=== PATIENT | female | born 1985 | race Two or more races ===

== ENCOUNTER 2020-08-06 22:57 | Emergency (ER) | payer MEDICAID ==
[~2020-08-06] VITALS: Ht 144.8 cm; Wt 57.7 kg
[2020-08-06] MEDS ORDERED: LORazepam 2 MG/ML, 1ML ONE (23:11)
[2020-08-06 23:25] LABS: BASOPHILS % (AUTO) 1 % (0-1); EOSINOPHILS % (AUTO) 4 % (1-7); LYMPHOCYTES % (AUTO) 47 % (22-44); MD NO; MEAN CORPUSCULAR HEMOGLOBIN 29.5 pg (27.0-34.8); MEAN CORPUSCULAR HGB CONC 34.7 g/dL (32.4-35.8); MEAN PLATELET VOLUME 7.4 fL (7.4-10.4); MONOCYTES % (AUTO) 6 % (2-9); NEUTROPHILS % (AUTO) 42 % (42-75); PLATELET COUNT 466 x10^3/uL (130-400); RED BLOOD COUNT 4.85 x10^6/uL (3.82-5.3)
[2020-08-06] MEDS ORDERED: SODIUM CHLORIDE FLUSH 10ML SYR IVF ONE (23:30)
[2020-08-06] MEDS ORDERED: LORazepam 2 MG/ML, 1ML IVPush ONE (23:30)
[2020-08-06 23:35] LABS: ALBUMIN 3.7 g/dL (3.4-5.0); ANION GAP 7 mmol/L (5-15); CALCIUM 8.3 mg/dL (8.5-10.1); CHLORIDE 107 mmol/L (98-107); CREATININE 0.78 mg/dL (0.55-1.02)
--- NOTE | 2020-08-06 23:44 | NUR ---
pt in bed, tearful but cooperative, endorses suicidal ideation. pt verbalizes concern regarding feeling uncared for by family, verbalizes ideas of hopelessness and states she wanted to take the dog to vet to be put down so that she could kill herself. 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 aware. pt instructed to work on focus on breathing and to ignore negative intrusive thoughts. pt medicated as ordered with iv ativan. pt on cardiac cath technician with even unlabored respirations.
--- NOTE | 2020-08-07 00:18 | NUR ---
pt in bed with no signs or symptoms of acute dsitrss noted respirations even and unlabored with friend at bedside, pt verbalizes feeling better. pt no longer tearful, no crying noted at this time. pt states that she would like an mri of her brain, this rn informed her that emergent mri have very specific indications and that we dont just do them on request. md aware, states the same. pt in bed with security monitor in place, bed rails up bilaterally and call light within reach.
[2020-08-07 01:33] LABS: SALICYLATE LEVEL < 1.7 mg/dL (2.8-20.0)
[2020-08-07 01:34] LABS: AMPHETAMINE SCREEN, URINE Negative (Negative); BARBITURATE SCREEN, URINE Negative (Negative); BENZODIAZEPINE SCREEN, URINE Negative (Negative); CANNABINOID SCREEN, URINE Negative (Negative); COCAINE SCREEN, URINE Negative (Negative); METHADONE SCREEN, URINE Negative (Negative); OPIATE SCREEN, URINE Negative (Negative)
--- NOTE | 2020-08-07 02:43 | NUR ---
PT MOVED TO ED 39 FOR TELE PSYCH, FRIEND AT BEDSIDE. PT CALM AND COOPERATIVE NO LONGER CRYING, DENIES NEED OR DISCOMFORT AT THIS TIME. NO SIGNS OR SYMPTOMS OF ACUTE DISTRESS NOTED RESPIRATIONS EVEN AND UNLABORED
--- NOTE | 2020-08-07 03:29 | NUR ---
Pt ambulated to BR without difficulty. Pt back to room and calm in bed. Friend at bedside. Will continue to monitor. Sitter outside room. Waiting on telepsych.
[2020-08-07 05:21] VITALS: BP 110/75
--- NOTE | 2020-08-07 05:22 | NUR ---
Tele-psych doc called and stated he feels the patient is safe to be DC'd. Pt dc'd to home, with friend. Pt states she does not want to harm herself, nor did she ever have feelings of wanting to hurt herself yesteday or today. Pt states she is safe to go home. Pt is A&Ox4 and in decision making capacity. Patient/Caregiver given discharge instructions and they have confirmed that they understand the instructions. Patient ambulatory with steady gait and home with friend.
== END 2020-08-07 05:26 | disposition home or self-care (01) ==
LOC: ED 08-07 02:27
DX: F41.1 Generalized anxiety disorder (principal); R06.4 Hyperventilation; F33.9 Major depressive disorder, recurrent, unspecified; R20.0 Anesthesia of skin; G40.909 Epilepsy, unspecified, not intractable, without status epilepticus
CPT/HCPCS: 36415; 80048; 80143; 80156; 80179; 80307; 82040; 84703; 85025; 93005; 96374; 99285; J2060; G0480